=== PATIENT | male | born 1965 | race African-American/Black ===

== ENCOUNTER 2019-09-06 16:09 | Emergency (ER) | payer MEDICARE ==
[~2019-09-06] VITALS: Ht 157.5 cm; Wt 66.8 kg
[2019-09-06 16:48] VITALS: TEMP 98
[2019-09-06 18:04] LABS: COLLECTION METHOD CLEAN CATCH
[2019-09-06 18:09] LABS: BASO # 0.1 (0.0-0.2); BASO % 0.6 % (0.0-2.0); EOS # 0.1 (0.0-0.7); EOS % 0.6 % (0-4.0); GRAN # 11.4 (1.4-6.5); GRAN % 76.9 % (42.2-75.2); HEMATOCRIT 45.5 % (42.0-52.0); HEMOGLOBIN 15.7 g/dl (13.5-18.0); LYMPH # 2.3 (1.2-3.4); LYMPH % 15.2 % (20.0-51.0); MEAN CELL VOLUME 91 fl (80.0-100.0); MEAN CORPUSCULAR HEMOGLOBIN 31 pg (27.0-31.0); MEAN CORPUSCULAR HGB CONC 35 g/dl (33.0-37.0); MEAN PLATELET VOLUME 8.9 fl (7.4-10.4); MONO # 0.9 (0.1-0.6); MONO % 5.8 % (1.7-9.3); PLATELET COUNT 287 K/mm3 (130-400); RED BLOOD COUNT 5.01 M/mm3 (4.20-5.60)
[2019-09-06 18:21] LABS: ALBUMIN 4.4 gm/dL (3.5-5.0); BILIRUBIN,TOTAL 0.9 mg/dL (0.0-1.0); CALCIUM 9.8 mg/dL (8.4-10.2); CREATININE, serum 1.87 (0.66-1.25); POTASSIUM 4.5 mmol/L (3.4-5.0)
[2019-09-06 18:27] LABS: HYALINE CAST >12 /lpf; MUCOUS Present /lpf; PH 5 (5-8); URINE APPEARANCE Cloudy; URINE BACTERIA Rare /hpf; URINE BILIRUBIN Negative (NEGATIVE); URINE BLOOD 1+ (NEGATIVE); URINE COLOR Yellow; URINE GLUCOSE 1+ (NEGATIVE); URINE KETONE Negative (NEGATIVE); URINE LEUKOCYTE ESTERASE 3+ (NEGATIVE); URINE NITRATE Negative (NEGATIVE); URINE PROTEIN(semi-quant) 1+ (NEGATIVE); URINE UROBILINOGEN Negative (NEGATIVE)
[2019-09-06] MEDS ORDERED: CIPRO 500MG TA500 MG PO (20:01)
[2019-09-06 20:43] VITALS: BP 134/88; PULSE 65
[2019-09-08] MEDS ORDERED: GLUCOPHAGE1000 MG PO (00:01)
[2019-09-08] MEDS ORDERED: LEVEMIR100 U/ML SQ (00:02)
[2019-09-08] MEDS ORDERED: PRINIVIL10 MG PO (00:02)
[2019-09-08] MEDS ORDERED: DEXILANT60 MG PO (02:20)
[2019-09-08] MEDS ORDERED: TOPROL XL 25MG25 MG PO (02:21)
[2019-09-08] MEDS ORDERED: KLONOPIN 1MG1 MG PO (02:21)
[2019-09-08] MEDS ORDERED: ZOLOFT 100MG100 MG PO (02:21)
[2019-09-08] MEDS ORDERED: COGENTIN .0.5 MG/TAB PO (02:22)
[2019-09-10] MEDS ORDERED: ZOFRAN ODT4 MG PO (11:22)
[2019-09-10] MEDS ORDERED: NORCO 325 MG-51 TAB PO (11:22)
== END 2019-09-06 20:58 | disposition home or self-care (01) ==
LOC: COL.ER 16:09
PROVIDERS: Physician Assistant
DX: N30.90 Cystitis, unspecified without hematuria (principal); E87.1 Hypo-osmolality and hyponatremia; R79.89 Other specified abnormal findings of blood chemistry; R07.89 Other chest pain; R05 Cough; R06.02 Shortness of breath; I10 Essential (primary) hypertension; F17.210 Nicotine dependence, cigarettes, uncomplicated; Z79.4 Long term (current) use of insulin; Z90.49 Acquired absence of other specified parts of digestive tract; Z88.5 Allergy status to narcotic agent; Z88.8 Allergy status to other drugs, medicaments and biological substances; Z20.828 Contact with and (suspected) exposure to other viral communicable diseases
CPT/HCPCS: J0696; J0780; J2060; J2270; J2405; J7030